=== PATIENT | male | born 1965 | race African-American/Black ===

== ENCOUNTER 2016-06-17 07:17 | Day surgery (SDC) | payer MEDICARE, OTHER ==
[~2016-06-17 07:17] MED LIST: CEFAZOLIN SODIUM 1 GM in DEXTROSE 5%-WATER 50 ML IV PRN
[2016-06-17] MEDS ORDERED: LIDOCAINE 1% INJ-PF (10 MG/ML) 30 ML SDV ONE (07:21)
[2016-06-17] MEDS ORDERED: BACITRACIN INJ 50,000 UNIT VIAL ONE (07:21)
[2016-06-17] MEDS ORDERED: HEPARIN SOD (PORCINE) 1,000 UNIT/ML 10 ML VIAL ONE (07:21)
[2016-06-17] MEDS ORDERED: LIDOCAINE 0.5% INJ-PF (5 MG/ML) 50 ML SDV ONE (07:21)
[2016-06-17] MEDS ORDERED: BUPIVACAINE HCL 0.25 % INJ/PF (2.5 MG/1 ML) 30 ML VIAL ONE (07:21)
[2016-06-17] MEDS ORDERED: FENTANYL CITRATE INJ/PF 250 MCG/5 ML AMPULE ONE (07:56)
[2016-06-17] MEDS ORDERED: MIDAZOLAM 2 MG/2 ML INJ ONE ×2 (07:56→09:50)
[2016-06-17] MEDS ORDERED: DEXMEDETOMIDINE INJ 80 MCG/20 ML VIAL IV ONE (07:57)
[2016-06-17] MEDS ORDERED: PROPOFOL INJ 200 MG/20 ML VIAL IV ONE ×2 (07:57→09:49)
[2016-06-17] MEDS ORDERED: EPHEDRINE SULFATE INJ 50 MG/1 ML AMPULE ONE (07:57)
[2016-06-17] MEDS ORDERED: FENTANYL CITRATE INJ/PF 100 MCG/2 ML AMPUL ONE (09:49)
[2016-06-17] MEDS ORDERED: VANCOMYCIN HCL INJ 500 MG VIAL ONE (11:17)
[2016-06-17] MEDS ORDERED: VANCOMYCIN HCL INJ 1000 MG VIAL ONE (11:18)
[2016-06-17] MEDS ORDERED: OXYCODONE-ACETAMINOPHEN 5-325 MG TABLET PO PRN ×2 (12:53)
[2016-06-17] MEDS ORDERED: MEPERIDINE HCL/PF INJ 25 MG/1 ML DISP.SYRIN IV PRN (12:53)
[2016-06-17] MEDS ORDERED: FENTANYL CITRATE INJ/PF 100 MCG/2 ML AMPUL IV PRN ×3 (12:53)
[2016-06-17] MEDS ORDERED: PROMETHAZINE HCL INJ 25 MG/1 ML VIAL IV PRN ×2 (12:53)
[2016-06-17] MEDS ORDERED: DIPHENHYDRAMINE HCL 50 MG/ML VIAL IV PRN (12:53)
[2016-06-17] MEDS ORDERED: MORPHINE SULFATE 10 MG/ML INJ IV PRN (12:53)
--- NOTE | 2016-06-17 13:44 | PDOC DISCHARGE SUMMARY ---
Discharge Summary (SDC) - Discharge Final Diagnosis: #1 malfunctioning AV fistula right arm, multiple aneurysms, stenosis. #2 end-stage renal disease on hemodialysis. #3 diabetes mellitus type II. #4 hypertension. Date of Surgery: 06/17/16 Discharge Date: 06/17/16 Condition: Fair Treatment or Instructions: #1 activities within moderation encouraged. #2 follow up in my office by appointment in about 1 week. Call for appointment. #3 the wounds covered clean and dry until office visit. #4 hold off on school/work until evaluation in office. #5 may shower in 48 hours, keep operated area as dry as possible. #6 discharge from ambulatory to when ASU criteria met. #7 medications per medication reconciliation sheet. #8 Percocet prescription. Prescriptions: Oxycodone HCl/Acetaminophen [Percocet 5-325 mg Tablet] 1 tab PO ASDIR PRN #10 tab PRN Reason: Discharge Diet: Other (Comments) - Renal Respiratory Treatments at Home: Deep Breathing/Coughing Report the Following to Your Physician Immediately: Unusual Bleeding
--- NOTE | 2016-06-17 13:57 | Operative Report ---
Operative Report DATE OF SURGERY: 06/17/16 PREOPERATIVE DIAGNOSIS: #1 malfunctioning AV fistula right arm, multiple aneurysms, stenosis. #2 end-stage renal disease on hemodialysis. #3 diabetes mellitus type II. #4 hypertension. POSTOPERATIVE DIAGNOSIS: #1 malfunctioning AV fistula right arm, multiple aneurysms, stenosis. #2 end-stage renal disease on hemodialysis. #3 diabetes mellitus type II. #4 hypertension. OPERATION: #1 ultrasound guided right femoral vein catheter insertion. #2 needle entry into right arm AV fistula. #3 angioplasty in right subclavian vein , central. #4 angioplasty in the right arm AV fistula, transposed basilic to brachial. #5 angiogram and interpretation. #6 resection of true aneurysm of right arm arteriovenous fistula. SURGEON: EDDI MORALES GREASE REFINER OPERATOR: JP PRESLEY ANESTHESIA: Moderate Sedation TISSUE REMOVED OR ALTERED: Right arm arteriovenous fistula aneurysm wall. COMPLICATIONS: None ESTIMATED BLOOD LOSS: 20 mL. INTRAOPERATIVE FINDINGS: #1 satisfactory right femoral vein with satisfactory access under ultrasound guidance. Ultrasound guidance of considerable efficacy in this thin patient with a vein more or less beneath the femoral artery. #2 a right arm AV fistula with 2 large aneurysms. Angiogram demonstrates a stenosis at about 10 cm about 90% of the adjacent lumen for distance of about a centimeter. Eradicated with angioplasty. A second stenosis noted in the mid subclavian vein about 70% of the adjacent lumen. Eradicated by angioplasty. 2 aneurysms of the right arm transposed basilic to brachial fistula. The distal is about 5 cm x 3 cm. The more cephalad about 6 cm x 3 cm. Only the distal one was resected. The other may need resection in the future. To preserve dialysis access in this patient with a blanca fistula and extremely difficult veins resection will be staged. Good functioning, good thrill in the fistula at the end of the procedure. The patient small veins made it impossible for anesthesia to get an IV hence the need for central line. PROCEDURE: After obtaining informed consent, the patient was assessed in the operating room and positioned supine. The the right groin and lower area were prepared with chlorhexidine and draped out with sterile linen. After the " universal timeout",the procedure commenced. A steriley sheathed ultrasound probe was used to evaluate the right femoral vein. Local anesthesia was infiltrated adjacent to the probe. Access into the right femoral vein was obtained using a micropuncture needle, followed by micropuncture wire and then a micropuncture catheter. This was followed by introduction of a 0.035 guidewire the tip of which was placed into the level of the inferior vena cava . Further local anesthesia was infiltrated. The dry lumen catheter was now easily placed over the guidewire. The guidewire was now removed. Easy ingress of heparinized solution and egress of blood obtained through all 3 ports. The catheter was now anchored using 3-0 nylon. A Biopatch device was now placed adjacent to the catheter. Dressings were applied and the procedure concluded. After verifying the procedure and having obtained informed consent, the patient's right arm was prepared with Chlorhexidine and draped out with sterile linen. Local anesthesia infiltrated. Percutaneous access into the fistula ,[ antegrade], obtained directly through the distal aneurysm using a 18-gauge Angiocath. A 0.035 [place] wire was inserted, and over this, a 7 Gren[place] short introducer was placed, this was followed by a [8] angioplasty balloon . Angioplasty was Angioplasty was not did in the culprit subclavian lesion inflating the 8 mm balloon up to 14 demarcus and sustaining it for 2 minutes. The guidewire removed, the catheter withdrawn and an angiogram done so that the catheter demonstrated resolution of the subclavian lesion. The 8 mm balloon was now sequentially inflated all along the fistula down to the introducer. A completion angiogram demonstrated the that there was resolution of the area of stenosis at about 10 cm.. Inflating up to 18 atmospheres for a minute at a time.]. Completion angiogram demonstrated [satisfactory result]. A 3-0 PDS suture was now used to close the puncture wound after removal of a 7 Gren[place] introducer.. After verifying the procedure and having obtained informed consent, the patient's right arm was prepared with Chlorhexidine and draped out with sterile linen. After the universal timeout, in which was verified that the patient received IV antibiotic, the procedure commenced. The angiographic equipment was now removed from the room and the field recommenced for the aneurysm resection. The area of the aneurysm for resection was marked. Also marked was the area in the fistula which is accessible for dialysis in the future, local anesthesia was infiltrated into inserted into the skin and subcutaneous tissues around the area to be excised. The incision was now made taking care to leave healthy skin and to remove the diseased skin. Dissection proceeded into the subcutaneous tissues in between the skin and aneurysm wall. A hemostat was used to define this plane which was also nicely defined by the local anesthesia, the dissection proceeded medially and then laterally around the aneurysm. The dissection proximal and distal to the aneurysm was done just sufficient to place occluding vascular clamps. Hemostasis was secured in the operative field using cautery, light vascular clamps were now applied proximally and distally and found to be satisfactory. They were now removed. The patient was given 2500 units of heparin intravenously. After 3 minutes the clamps were reapplied. A Macias scissor was now used to excise the aneurysm wall and overlying skin taking care to leave sufficient fistula for closure, without stenosis. The aneurysm wall and overlying skin were submitted for pathology after photograph had been taken. Fistula was now reconstituted by a continuous side to side suture of 4-0 Prolene. This was tied and a second layer of continuous interlocking suture done of the same material. Control of the fistula was now released and it was evaluated. There was a nice thrill in it and the size was reconstituted to approximately 1 cm in diameter. Hemostasis was checked for and ensured and the wound closed. The wound was now closed using interrupted 3-0 PDS to the subcutaneous tissues. The skin was closed using interrupted and continuous sutures of 4-0 Monocryl. These were reinforced with Steri-Strips over benzoin and a dressing applied. Dressings applied, procedure concluded. The rn first assist provided retraction, thus facilitating the operative view. Controlled bleeding. The rn first assist also followed the suturing, thus facilitating accurate suture placement. Sutured skin and applied dressings. cc: EDDI STEINBERG M.D. ([id number]) >>
[2016-06-17 15:50] VITALS: BP 131/84
--- NOTE | 2016-06-17 16:59 | EKG REPORT ---
SEVERITY:- ABNORMAL ECG - SINUS RHYTHM LVH WITH SECONDARY REPOLARIZATION ABNORMALITY PROLONGED QT INTERVAL : Confirmed by: Lulú Fowler MD 17-Jun-2016 16:58:27
== END 2016-06-17 15:10 | disposition home or self-care (01) ==
LOC: OROUT 07:17
PROVIDERS: ATTEND Surgery
PROC: 05SB3ZZ Reposition Right Basilic Vein, Percutaneous Approach (ICD-10-PCS; 2016-06-17)
PROC: 05WY0JZ Revision of Synthetic Substitute in Upper Vein, Open Approach (ICD-10-PCS; 2016-06-17)
PROC: 05H533Z Insertion of Infusion Device into Right Subclavian Vein, Percutaneous Approach (ICD-10-PCS; principal; 2016-06-17 09:15)
PROC: 06HM33Z Insertion of Infusion Device into Right Femoral Vein, Percutaneous Approach (ICD-10-PCS; 2016-06-17 09:15)
DX: T82.858A Stenosis of other vascular prosthetic devices, implants and grafts, initial encounter (principal); Y83.2 Surgical operation with anastomosis, bypass or graft as the cause of abnormal reaction of the patient, or of later complication, without mention of misadventure at the time of the procedure; I12.0 Hypertensive chronic kidney disease with stage 5 chronic kidney disease or end stage renal disease; N18.6 End stage renal disease; Z99.2 Dependence on renal dialysis; J45.909 Unspecified asthma, uncomplicated; E11.9 Type 2 diabetes mellitus without complications; K21.9 Gastro-esophageal reflux disease without esophagitis; I50.9 Heart failure, unspecified; Z88.0 Allergy status to penicillin; Z88.8 Allergy status to other drugs, medicaments and biological substances; Z87.891 Personal history of nicotine dependence; Z79.4 Long term (current) use of insulin; Z79.899 Other long term (current) drug therapy
CPT/HCPCS: 36819; 36832; 36901; 88305 ×2; 71010; 73060; 93005; 93010; C1725; C1751; C1769; C1752; C1894; Q9967; J2250; J3490 ×3; J0690; J3010; J1644; J3370 ×2; J2704; 01844; J1642

== ENCOUNTER → 2016-08-19 | Day surgery (SDC) | payer MEDICARE, OTHER ==
[2016-08-12 10:59] LABS: HEMATOCRIT 34.9 % (37.9-51.0); HEMOGLOBIN 11.3 g/dL (13.5-17.0); MEAN CORPUSCULAR HEMOGLOBIN 30.4 pg (27.0-33.4); MEAN CORPUSCULAR HGB CONC 32.3 g/dL (32.0-36.0); MEAN CORPUSCULAR VOLUME 94 fl (80-97); RED BLOOD COUNT 3.71 10^6/uL (4.35-5.55); RED CELL DISTRIBUTION WIDTH 17.8 % (11.5-14.0); WHITE BLOOD COUNT 4.8 10^3/uL (4.0-10.5)
[2016-08-12 11:14] LABS: BLOOD UREA NITROGEN 49 mg/dL (7-20); CALCIUM 8.1 mg/dL (8.4-10.2); CARBON DIOXIDE 20 mmol/L (22-30); CHLORIDE 99 mmol/L (98-107); CREATININE RESULT 8.07 mg/dL (0.52-1.25); GLUCOSE 334 mg/dL (75-110); POTASSIUM 4.9 mmol/L (3.6-5.0); SODIUM 139.6 mmol/L (137-145)
[2016-08-12 11:19] LABS: ANION GAP 21 (5-19)
--- NOTE | 2016-08-12 12:58 | EKG REPORT ---
SEVERITY:- ABNORMAL ECG - SINUS RHYTHM LVH WITH SECONDARY REPOLARIZATION ABNORMALITY PROLONGED QT INTERVAL : Confirmed by: Blade Forte 12-Aug-2016 12:58:02
[~2016-08-19] MED LIST changes: +BACITRACIN INJ 50,000 UNIT VIAL ONE; +BUPIVACAINE HCL 0.25 % INJ/PF (2.5 MG/1 ML) 30 ML VIAL ONE; +CEFAZOLIN 1 GM/D5W RTU 1 GM/50 ML RTUPB IV PRN; -CEFAZOLIN SODIUM 1 GM in DEXTROSE 5%-WATER 50 ML IV PRN; +CLINDAMYCIN 600 MG/D5W RTU 600 MG/50 ML RTUPB IV PRN; +DEXMEDETOMIDINE INJ 80 MCG/20 ML VIAL IV ONE; +FENTANYL CITRATE INJ/PF 100 MCG/2 ML AMPUL ONE; +HEPARIN SOD (PORCINE) 1,000 UNIT/ML 10 ML VIAL ONE; +LIDOCAINE 0.5% INJ-PF (5 MG/ML) 50 ML SDV INJ PRN; +LIDOCAINE 0.5% INJ-PF (5 MG/ML) 50 ML SDV ONE; +LIDOCAINE 1% INJ-PF (10 MG/ML) 30 ML SDV ONE; +MIDAZOLAM 2 MG/2 ML INJ ONE; +NORMAL SALINE 1000 ML 1,000 ML IV PRN; +PROPOFOL INJ 200 MG/20 ML VIAL IV ONE; +THROMBIN (BOVINE) 5000 UNIT EPITAXIS KIT ONE
[2016-08-19 06:23] VITALS: BP 204/116
[2016-08-19 07:06] LABS: POTASSIUM 4.9 mmol/L (3.6-5.0)
== END ==
LOC: OROUT 05:38
PROVIDERS: ATTEND Surgery
DX: T82.9XXA Unspecified complication of cardiac and vascular prosthetic device, implant and graft, initial encounter (principal); E11.22 Type 2 diabetes mellitus with diabetic chronic kidney disease; N18.6 End stage renal disease; I50.9 Heart failure, unspecified; Z79.899 Other long term (current) drug therapy; Z88.0 Allergy status to penicillin; Z01.818 Encounter for other preprocedural examination
CPT/HCPCS: 93005; 36415 ×2; 82947; 84132; 85027; 80048; 93010; J3490 ×3; J1644; J1642; J2250; J2704; J3010

== ENCOUNTER 2016-08-26 06:54 | Day surgery (SDC) | payer MEDICARE, OTHER ==
[~2016-08-26 06:54] MED LIST changes: -CEFAZOLIN 1 GM/D5W RTU 1 GM/50 ML RTUPB IV PRN; -DEXMEDETOMIDINE INJ 80 MCG/20 ML VIAL IV ONE; -FENTANYL CITRATE INJ/PF 100 MCG/2 ML AMPUL ONE; -HEPARIN SOD (PORCINE) 1,000 UNIT/ML 10 ML VIAL ONE; -LIDOCAINE 0.5% INJ-PF (5 MG/ML) 50 ML SDV INJ PRN; +LIDOCAINE 0.5% INJ-PF (5 MG/ML) 50 ML SDV SUBCUT PRN; -LIDOCAINE 1% INJ-PF (10 MG/ML) 30 ML SDV ONE; -MIDAZOLAM 2 MG/2 ML INJ ONE; +NORMAL SALINE 1000 ML (RENAL PATIENTS) IV PRN; -NORMAL SALINE 1000 ML 1,000 ML IV PRN; -PROPOFOL INJ 200 MG/20 ML VIAL IV ONE; -THROMBIN (BOVINE) 5000 UNIT EPITAXIS KIT ONE
[2016-08-26] MEDS ORDERED: KETAMINE HCL INJ 500 MG/10 ML VIAL ONE (08:01)
[2016-08-26] MEDS ORDERED: MIDAZOLAM 2 MG/2 ML INJ ONE ×2 (08:02)
[2016-08-26] MEDS ORDERED: FENTANYL CITRATE INJ/PF 100 MCG/2 ML AMPUL ONE (08:02)
[2016-08-26] MEDS ORDERED: PROPOFOL INJ 200 MG/20 ML VIAL IV ONE (08:03)
[2016-08-26] MEDS ORDERED: DEXMEDETOMIDINE INJ 80 MCG/20 ML VIAL IV ONE (08:03)
[2016-08-26] MEDS ORDERED: HEPARIN SODIUM,PORCINE/NS/PF 0 UNIT/0 ML RTUINJ IV ONE (08:33)
[2016-08-26 09:02] LABS: POTASSIUM 4.8 mmol/L (3.6-5.0)
[2016-08-26] MEDS ORDERED: INSULIN REG, HUMAN 100 UNIT/ML 3 ML VIAL (PYX) ONE ×2 (09:14→11:47)
[2016-08-26] MEDS ORDERED: HEPARIN SOD (PORCINE) 1,000 UNIT/ML 10 ML VIAL ONE (09:31)
[2016-08-26] MEDS ORDERED: OXYCODONE-ACETAMINOPHEN 5-325 MG TABLET PO PRN ×2 (10:14)
[2016-08-26] MEDS ORDERED: FENTANYL CITRATE INJ/PF 100 MCG/2 ML AMPUL IV PRN ×3 (10:14)
[2016-08-26] MEDS ORDERED: DIPHENHYDRAMINE HCL 50 MG/ML VIAL IV PRN (10:14)
[2016-08-26] MEDS ORDERED: MORPHINE SULFATE 10 MG/ML INJ IV PRN (10:14)
[2016-08-26] MEDS ORDERED: PROMETHAZINE HCL INJ 25 MG/1 ML VIAL IV PRN ×2 (10:14)
[2016-08-26] MEDS ORDERED: MEPERIDINE HCL/PF INJ 25 MG/1 ML DISP.SYRIN IV PRN (10:14)
--- NOTE | 2016-08-26 10:54 | PDOC DISCHARGE SUMMARY ---
Discharge Summary (SDC) - Discharge Final Diagnosis: #1 aneurysm of right arm basilic, brachial transposition fistula. #2 end-stage renal disease on hemodialysis. #3 diabetes mellitus type II. #4 hypertension. #5 multiple comorbidities. Date of Surgery: 08/26/16 Discharge Date: 08/26/16 Condition: Good Treatment or Instructions: #1 activities within moderation encouraged. #2 follow up in my office by appointment in about 1 week. Call for appointment. #3 the wounds covered clean and dry until office visit. #4 hold off on school/work until evaluation in office. #5 may shower in 48 hours, keep operated area as dry as possible. #6 discharge from ambulatory when ASU criteria met. Aim for a blood sugar of 200 or less. #7 medications per medication reconciliation sheet. #8 Percocet by prescription.. Also may have one Percocet up to every 4 hours when necessary for pain greater than 4 out of 10 while in the ASU Prescriptions: Oxycodone HCl/Acetaminophen [Percocet 5-325 mg Tablet] 1 tab PO ASDIR PRN #10 tab PRN Reason: Discharge Diet: Other (Comments) - Renal, diabetic. Respiratory Treatments at Home: Deep Breathing/Coughing Discharge Activity: Activity As Tolerated Report the Following to Your Physician Immediately: Unusual Bleeding
[2016-08-26] MEDS ORDERED: DEXTROSE 50%-WATER 25 GM/50 ML DISP.SYRIN IV ONE (13:00)
--- NOTE | 2016-08-26 13:08 | Operative Report ---
Operative Report DATE OF SURGERY: 08/26/16 PREOPERATIVE DIAGNOSIS: #1 aneurysm of right arm basilic, brachial transposition fistula. #2 end-stage renal disease on hemodialysis. #3 diabetes mellitus type II. #4 hypertension. #5 multiple comorbidities. POSTOPERATIVE DIAGNOSIS: #1 aneurysm of right arm basilic, brachial transposition fistula. #2 end-stage renal disease on hemodialysis. #3 diabetes mellitus type II. #4 hypertension. #5 multiple comorbidities. OPERATION: #1 insertion of a right femoral central line under ultrasound guidance. #2 fistula angiogram and angioplasty of a lesion of the subclavian to unction on the right. #3 resection of an aneurysm of the right arm post basilic vein fistula. SURGEON: EDDI MORALES J2EE DEVELOPER: none ANESTHESIA: LMAC TISSUE REMOVED OR ALTERED: Aneurysm wall with overlying skin resected and submitted for pathology. COMPLICATIONS: None ESTIMATED BLOOD LOSS: 10 mL. INTRAOPERATIVE FINDINGS: #1 nicely visualized right femoral vein. Access gained under local anesthesia using real-time ultrasound guidance. Easy egress of blood and ingress of heparinized solution through all 3 ports. #2 a stenosis noted at the right subclavian innominate junction estimated to be 70% stenosis. After dilatation approximately 10% residual stenosis. Much better function with the fistula being softer than initially. The 10 or even 12 mm may be needed. #3 second of 2 aneurysms in the fistula resected. This aneurysm about 4 x 4 x 3 cm. Excised conservatively leaving an estimated width of lumen about 1-1.5 cm. Fistula function was satisfactory at the end of the procedure and the available fistula for access was marked. PROCEDURE: PROCEDURE: After obtaining informed consent, the patient was assessed end positioned supine. The the right groin and lower area were prepared with chlorhexidine and draped out with sterile linen. After the " universal timeout",the procedure commenced. A steriley sheathed ultrasound probe was used to evaluate the right femoral vein. Local anesthesia was infiltrated adjacent to the probe. Access into the right femoral vein was obtained using a micropuncture needle, followed by micropuncture wire and then a micropuncture catheter. This was followed by introduction of a 0.035 guidewire the tip of which was placed into the level of the inferior vena cava . Further local anesthesia was infiltrated. The dry lumen catheter was now easily placed over the guidewire. The guidewire was now removed. Easy ingress of heparinized solution and egress of blood obtained through all 3 ports. The catheter was now anchored using 3-0 nylon. A Biopatch device was now placed adjacent to the catheter. Dressings were applied and the procedure concluded. After verifying the procedure and having obtained informed consent, the patient's right arm was prepared with Chlorhexidine and draped out with sterile linen. After the universal timeout, in which was verified that the patient received IV antibiotic, the procedure commenced. The area for needle introduction was selected such that the skin to be excised was included in the Local anesthesia infiltration . Percutaneous access into the fistula ,[ antegrade], obtained about 10 cm from the arteriovenous anastomosis using a micro puncture needle followed by micro puncture wire and then a micro puncture catheter. A 0.035 [place] wire was inserted, and over this, a 7 Ukrainian short introducer was placed. An angiogram was done reflecting the above findings . This was followed by a 8 angioplasty balloon . Angioplasty was Done up to 14 demarcus for 2 minutes. Completion angiogram demonstrated residual stenosis. A 9 mm angioplasty balloon was now placed over the weighted up to 12 demarcus for 2 minutes. It was demonstrated and eliminated. Completion angiogram demonstrated [satisfactory result]. The instrumentation was now withdrawn over a short piece of catheter and a 2-0 PDS suture. The angiographic equipment was now removed from the room and the field recommenced for the aneurysm resection. The area of the aneurysm for resection was marked. Also marked was the area in the fistula which is accessible for dialysis in the future, local anesthesia was infiltrated into inserted into the skin and subcutaneous tissues around the area to be excised. The incision was now made taking care to leave healthy skin and to remove the diseased skin. Dissection proceeded into the subcutaneous tissues in between the skin and aneurysm wall. A hemostat was used to define this plane which was also nicely defined by the local anesthesia, the dissection proceeded medially and then laterally around the aneurysm. The dissection proximal and distal to the aneurysm was done just sufficient to place occluding vascular clamps. Hemostasis was secured in the operative field using cautery, light vascular clamps were now applied proximally and distally and found to be satisfactory. They were now removed. The patient was given 2500 units of heparin intravenously. After 3 minutes the clamps were reapplied. A Macias scissor was now used to excise the aneurysm wall and overlying skin taking care to leave sufficient fistula for closure, without stenosis. The aneurysm wall and overlying skin were submitted for pathology after photograph had been taken. Fistula was now reconstituted by a continuous side to side suture of 3-0 Prolene. This was tied and a second layer of continuous interlocking suture done of the same material. Control of the fistula was now released and it was evaluated. There was a nice thrill in it and the size was reconstituted to approximately 1 cm in diameter. Hemostasis was checked for and ensured and the wound closed. The wound was now closed using interrupted 3-0 PDS to the subcutaneous tissues. The skin was closed using interrupted and continuous sutures of 4-0 Monocryl. These were reinforced with Steri-Strips over benzoin and a dressing applied. Dressings applied, procedure concluded. DICTATING PHYSICIAN: EDDI STEINBERG M.D.
[2016-08-26] MEDS ORDERED: INSULIN REG, HUMAN 100 UNIT/ML 3 ML VIAL (PYX) SUBCUT PRN (14:15)
[2016-08-26] MEDS ORDERED: GLUCAGON,HUMAN RECOMB 1 MG INJ IM PRN (14:15)
[2016-08-26] MEDS ORDERED: DEXTROSE 40% GEL 15 GM TUBE PO PRN ×2 (14:15)
[2016-08-26] MEDS ORDERED: DEXTROSE 50%-WATER 25 GM/50 ML DISP.SYRIN IV PRN ×2 (14:15)
[2016-08-26] MEDS ORDERED: GLYCOPYRROLATE INJ 0.4 MG/2 ML VIAL ONE (14:34)
[2016-08-26] MEDS ORDERED: LIDOCAINE 2% INJ-PF (20 MG/ML) 10 ML AMPUL ONE (14:34)
[2016-08-26] MEDS ORDERED: METOCLOPRAMIDE HCL INJ/PF 10 MG/2 ML SDV ONE (14:34)
[2016-08-26] MEDS ORDERED: ONDANSETRON HCL INJ/PF 4 MG/2 ML SDV ONE (14:34)
--- NOTE | 2016-08-26 15:16 | PDOC PROGRESS REPORT ---
Subjective Progress Note for:: 08/26/16 Subjective:: The patient was about to be discharged with his last glucose check being 154 when he had as a seizure. IVs were started, he was given D50 W and was quickly back to his normal self. A subsequent glucose is 50. Physical Exam Vital Signs: Temp Pulse Resp BP Pulse Ox 97.4 F 77 16 157/100 H 97 08/26/16 11:33 08/26/16 13:45 08/26/16 13:45 08/26/16 13:45 08/26/16 13:45 Intake & Output 08/25/16 08/26/16 08/27/16 06:59 06:59 06:59 Intake Total 600 Output Total 10 Balance 590 Weight 64 kg Additional comments: Well-developed well-nourished -[place] male. Psychiatric the patient is alert and oriented and judgment and memory and insight normal after a recent seizure. Extremity shows normal range of movement with fistula in place and functioning. Respiratory no shortness of breath or wheezing. Results Laboratory Results: 08/26/16 08:30 08/26/16 08:30 Potassium 4.8 Glucose 440 H* Impressions: Fluoroscopy 08/26/16 00:00 IMPRESSION: Intra procedural imaging and fluoro Humerus X-Ray 08/26/16 00:00 IMPRESSION: Intra procedural imaging and fluoro Assessment & Plan - Diagnosis (1) Hypoglycemia associated with diabetes Is this a current diagnosis for this admission?: YesPlan: Every hourly glucose checks. Admission for overnight observation. Consult requested from Dr. Sánchez. (2) End-stage renal disease on hemodialysis Is this a current diagnosis for this admission?: Yes (3) Hypertension Qualifiers: Hypertension type: essential hypertension Qualified Code(s): I10 - Essential (primary) hypertension Is this a current diagnosis for this admission?: Yes (4) Diabetes mellitus type 1 Qualifiers: Diabetes mellitus complication status: with kidney complications Chronic kidney disease stage: on chronic dialysis - Plan Summary Plan Summary: The patient was admitted. Placed on his normal medication. His glucose to be tracked acutely for about 4 hours aim towards some stability hopefully her out 200. [facility] is to discharge him tomorrow for dialysis as an outpatient.
[2016-08-26] MEDS ORDERED: CLONIDINE HCL 0.2 MG TABLET PO PRN (17:59)
--- NOTE | 2016-08-26 18:13 | PDOC PROGRESS REPORT ---
Subjective Progress Note for:: 08/26/16 Subjective:: I was asked by Dr. Burns to see the patient to check on his blood sugars and blood pressures while admitted for observation. Patient underwent AV fistula aneurysm repair this morning by Dr. Burns. Initial blood sugar was around 400+. Patient was then given some insulin but his blood sugar went down to 20 and had some hypoglycemic seizure. Patient was then given D50/ 50 and blood sugar went up appropriately. However his blood sugar still fluctuates until this time so Dr. Burns place the patient on observation overnight. When I entered the room the patient is pretty much in his normal mental state and is eating dinner. Doesn't really have any much complaints. His last blood sugar was 60. His blood pressure is also within normal limits without any blood pressure medications. He doesn't have any complaints. Physical Exam Vital Signs: Temp Pulse Resp BP Pulse Ox 97.4 F 70 20 120/69 96 08/26/16 11:33 08/26/16 15:47 08/26/16 15:47 08/26/16 15:47 08/26/16 15:14 Intake & Output 08/25/16 08/26/16 08/27/16 06:59 06:59 06:59 Intake Total 600 Output Total 10 Balance 590 Weight 65.5 kg Exam: General appearance: PRESENT: no acute distress, cooperative, well-developed, well-nourished Head exam: PRESENT: atraumatic, normocephalic Eye exam: PRESENT: conjunctiva pink, PERRLA. ABSENT: scleral icterus Neck exam: ABSENT: JVD Respiratory exam: PRESENT: Normal breath sounds. ABSENT: crackles, rales, rhonchi, unlabored, wheezes Cardiovascular exam: PRESENT: Regular rate rhythm -+S1, +S2. Right AV fistula on his right upper arm with good bruit. There is a dressing around it post surgery. ABSENT: diastolic murmur, systolic murmur GI/Abdominal exam: PRESENT: normal bowel sounds, soft. ABSENT: guarding, mass, tenderness Extremities exam: ABSENT: No edema Neurological exam: PRESENT: alert, awake, oriented to person, place and time. Skin exam: PRESENT: dry, warm, Results Laboratory Results: 08/26/16 08:30 08/26/16 08:30 Potassium 4.8 Glucose 440 H* Impressions: Fluoroscopy 08/26/16 00:00 IMPRESSION: Intra procedural imaging and fluoro Humerus X-Ray 08/26/16 00:00 IMPRESSION: Intra procedural imaging and fluoro Chest X-Ray 08/26/16 14:14 IMPRESSION: Left retrocardiac airspace disease as described. Cardiomegaly. Assessment & Plan - Diagnosis (1) Hypoglycemia associated with diabetes Is this a current diagnosis for this admission?: YesPlan: I have instructed the nurse to do Accu-Chek monitoring every 1 hour until the patient's blood sugar is 150 or greater for two monitorings and then check Accu- Cheks every 4 hours while the patient is here. Do sliding scale Humulin insulin , to start giving insulin only if blood sugars greater than 200. Hold Levemir for now. (2) End-stage renal disease on hemodialysis Is this a current diagnosis for this admission?: YesPlan: Patient is scheduled for hemodialysis at [facility] tomorrow at 10:40 AM hopefully after discharge in the morning. (3) Hypertension Qualifiers: Hypertension type: essential hypertension Qualified Code(s): I10 - Essential (primary) hypertension Is this a current diagnosis for this admission?: YesPlan: Currently well controlled. However I will write an order order for clonidine 0.2 mg every 12 hours when necessary for systolic blood pressure greater than 160. We can resume all other medications if he needs more blood pressure medications while here in hospital. I cautioned the patient's nurse that the patient's blood pressure is also very labile so we need to be careful at this time. - Time Time with patient: 15-25 minutes
[2016-08-26] MEDS ORDERED: HYDRALAZINE HCL INJ/PF 20 MG/1 ML SDV ONE (23:25)
[2016-08-26] MEDS ORDERED: HYDRALAZINE HCL INJ/PF 20 MG/1 ML SDV IV PRN (23:44)
[2016-08-26] MEDS ORDERED: HYDRALAZINE HCL INJ/PF 20 MG/1 ML SDV IV ONE (23:45)
[2016-08-26] MEDS ORDERED: NITROGLYCERIN 0.4 MG/TAB 25 TAB/BOTTLE SL PRN (23:45)
[2016-08-27 05:25] LABS: HEMATOCRIT 37.8 % (37.9-51.0); HEMOGLOBIN 12.4 g/dL (13.5-17.0); HGB HCT DIFFERENCE -0.6; MEAN CORPUSCULAR HGB CONC 32.8 g/dL (32.0-36.0); MEAN CORPUSCULAR VOLUME 95 fl (80-97); RED CELL DISTRIBUTION WIDTH 17.8 % (11.5-14.0); WHITE BLOOD COUNT 7.4 10^3/uL (4.0-10.5)
[2016-08-27 05:46] LABS: ANION GAP 18 (5-19); BLOOD UREA NITROGEN 38 mg/dL (7-20); CALCIUM 8.3 mg/dL (8.4-10.2); CARBON DIOXIDE 23 mmol/L (22-30); CHLORIDE 95 mmol/L (98-107); GLUCOSE 309 mg/dL (75-110); SODIUM 135.8 mmol/L (137-145)
[2016-08-27 05:56] LABS: POTASSIUM 6.2 mmol/L (3.6-5.0)
--- NOTE | 2016-08-27 08:27 | EKG REPORT ---
SEVERITY:- ABNORMAL ECG - SINUS RHYTHM PROBABLE LEFT ATRIAL ABNORMALITY CONSIDER ANTERIOR INFARCT NONSPECIFIC T ABNORMALITIES, LATERAL LEADS BORDERLINE PROLONGED QT INTERVAL : Confirmed by: Cali Syed MD 27-Aug-2016 08:27:31
[2016-08-27 08:43] VITALS: BP 120/69
--- NOTE | 2016-08-28 16:38 | DISCHARGE SUMMARY E ---
Discharge Summary NAME: LU JENKINS : 1965 AGE: 51Y ADMITTED: 08/26/2016 DISCHARGED: 08/27/2016 ADMITTING DIAGNOSES: 1. Aneurysm of right arm basilic, brachial transposition fistula. 2. End-stage renal disease on hemodialysis. 3. Diabetes mellitus type 2. 4. Hypertension. 5. Multiple comorbidities. DISCHARGE DIAGNOSES: 1. Aneurysm of right arm basilic, brachial transposition fistula. 2. End-stage renal disease on hemodialysis. 3. Diabetes mellitus type 2. 4. Hypertension. 5. Multiple comorbidities. 6. Hypoglycemia. 7. Seizure. HISTORY AND PHYSICAL: Please see admission. HOSPITAL COURSE: The patient was admitted and underwent resection of a fistula aneurysm as well as angioplasty. Post procedure, the patient was recovered and was going to be discharged when he had a seizure. His blood sugar was found to be 20, a consequence of attempted correction of glucose as high as over 400. He was treated successfully with glucose and regained consciousness very quickly. He was kept in overnight for observation to make sure that there were no further wide swings in glucose. On the 08/27/2016, he was alert, comfortable, and in no distress. No seizures, and his blood sugar was about 290. At that point, the patient was discharged. He is to continue his original regime on dialysis, medications, and so forth. Follow up in our office by appointment in about 1 week. DICTATING PHYSICIAN: EDDI STEINBERG M.D. [id number] PHY#: [id number] ID: [id number] JOB#: [id number] ACCT: [id number] cc:EDDI STEINBERG M.D. >
== END 2016-08-27 09:09 | disposition home or self-care (01) ==
LOC: OROUT 06:54 → 3W 15:05 → OROUT 08-27 09:09
PROVIDERS: ATTEND Surgery
PROC: B54BZZA Ultrasonography of Right Lower Extremity Veins, Guidance (ICD-10-PCS; 2016-08-26)
PROC: 05LB0ZZ Occlusion of Right Basilic Vein, Open Approach (ICD-10-PCS; principal; 2016-08-26 08:00)
PROC: 06HM33Z Insertion of Infusion Device into Right Femoral Vein, Percutaneous Approach (ICD-10-PCS; 2016-08-26 08:00)
DX: T82.858A Stenosis of other vascular prosthetic devices, implants and grafts, initial encounter (principal); Y83.2 Surgical operation with anastomosis, bypass or graft as the cause of abnormal reaction of the patient, or of later complication, without mention of misadventure at the time of the procedure; I12.0 Hypertensive chronic kidney disease with stage 5 chronic kidney disease or end stage renal disease; E16.2 Hypoglycemia, unspecified; E08.22 Diabetes mellitus due to underlying condition with diabetic chronic kidney disease; N18.6 End stage renal disease; Z99.2 Dependence on renal dialysis; D50.8 Other iron deficiency anemias; G40.909 Epilepsy, unspecified, not intractable, without status epilepticus; I50.9 Heart failure, unspecified; I51.7 Cardiomegaly; K21.9 Gastro-esophageal reflux disease without esophagitis; F32.9 Major depressive disorder, single episode, unspecified; Z79.899 Other long term (current) drug therapy; Z87.891 Personal history of nicotine dependence; Z79.4 Long term (current) use of insulin; Z88.8 Allergy status to other drugs, medicaments and biological substances; Z88.0 Allergy status to penicillin
CPT/HCPCS: 37607; 36558; 36415; 82962; 82947; 84132; 85027; 80048; 88304 ×2; 71010; 73060; 93005; 93010; C1725; C1751; C1769; C1894; Q9967; J2250; J3490 ×6; A9270 ×4; J3010; J1644 ×2; J0360; J2765; J2405; J2704; 01844; J1642; J1815

== ENCOUNTER 2016-09-01 05:59 | Emergency (ER) | payer MEDICARE, OTHER ==
[2016-09-01] MEDS ORDERED: MORPHINE SULFATE 10 MG/ML INJ IV ONE (09:16)
[2016-09-01] MEDS ORDERED: ONDANSETRON HCL INJ/PF 4 MG/2 ML SDV IV ONE (09:16)
[2016-09-01] MEDS ORDERED: HYDRALAZINE HCL INJ/PF 20 MG/1 ML SDV IV ONE (09:16)
[2016-09-01] MEDS ORDERED: HYDRALAZINE HCL 10 MG TABLET PO ONE (09:20)
[2016-09-01] MEDS ORDERED: HYDROCODONE/ACETAMINOPHEN 5-325 MG TABLET PO ONE (09:20)
[2016-09-01] MEDS ORDERED: ONDANSETRON 4 MG TAB.RAPDIS PO ONE (09:20)
--- NOTE | 2016-09-01 09:23 | ER Document Report ---
ED General - General Chief Complaint: Nausea/Vomiting/Diarrhea Stated Complaint: ABDOMINAL PAIN Mode of Arrival: Ambulatory Information source: Patient Notes: 51-year-old male end-stage renal disease on dialysis who was present dialysis performed today comes in with complaints of vomiting. Patient notes he has had multiple episodes, patient has been eating at home but did not take it. Patient has been told of his other medications he states. Denies any chest pain shortness of breath difficulty breathing, admits to mild generalized abdominal tenderness worse in the left lower quadrant Denies any fevers or chills TRAVEL OUTSIDE OF THE [place] IN LAST 30 DAYS: No - HPI Onset: Yesterday Onset/Duration: Intermittent Quality of pain: No pain Severity: Mild Pain Level: 1 Associated symptoms: Nausea, Vomiting Exacerbated by: Denies Relieved by: Denies Similar symptoms previously: Yes Recently seen / treated by doctor: Yes - Related Data Allergies/Adverse Reactions: Penicillins Allergy (Severe, Verified 05/04/16 05:46) Nausea/Vomitting tuberculin, purified protein deriva [Tuberculin,Purif.Prot.Deriv.] Allergy ( Unknown, Verified 05/04/16 05:46) Converter metoclopramide HCl [From Reglan] Adverse Reaction (Severe, Verified 05/04/16 05: 46) tremors Past Medical History - Social History Smoking Status: Former Smoker Cigarette use (# per day): No Chew tobacco use (# tins/day): No Smoking Education Provided: No Family History: Reviewed & Not Pertinent Patient has suicidal ideation: No Patient has homicidal ideation: No - Past Medical History Cardiac Medical History: Reports: Hx Hypercholesterolemia, Hx Hypertension, Hx Heart Murmur Denies: Hx Coronary Artery Disease, Hx Heart Attack Pulmonary Medical History: Denies: Hx Asthma, Hx Bronchitis, Hx COPD, Hx Pneumonia, Hx Tuberculosis Neurological Medical History: Denies: Hx Cerebrovascular Accident, Hx Seizures Endocrine Medical History: Reports: Hx Diabetes Mellitus Type 1, Hx Diabetes Mellitus Type 2 Renal/ Medical History: Reports: Hx End Stage Renal Disease, Hx Hemodialysis - MWF. Denies: Hx Peritoneal Dialysis - Hemo Malignancy Medical History: GI Medical History: Reports: Hx Gastroesophageal Reflux Disease - Diabetic gastroparesis Musculoskeltal Medical History: Denies Hx Arthritis Psychiatric Medical History: Reports: Hx Depression Traumatic Medical History: Reports: Hx Fractures - left hip Infectious Medical History: Past Surgical History: Reports: Hx Cardiac Surgery, Hx Orthopedic Surgery - left hip/knee, Hx Pancreatic Surgery - Left ORIF, Hx Vascular Surgery - AV fistula right upper arm - Immunizations Hx Diphtheria, Pertussis, Tetanus Vaccination: Yes - 2011 Hx Pneumococcal Vaccination: 06/08/12 Review of Systems - Review of Systems Notes: REVIEW OF SYSTEMS: CONSTITUTIONAL : Denies fever, chills, or sweats. Denies recent illness. EENT: Denies eye, ear, throat, or mouth pain or symptoms. Denies nasal or sinus congestion or discharge. Denies throat, tongue, or mouth swelling or difficulty swallowing. CARDIOVASCULAR: Denies chest pain. Denies palpitations or racing or irregular heart beat. Denies ankle edema. RESPIRATORY: Denies cough, cold, or chest congestion. Denies shortness of breath, difficulty breathing, or wheezing. GASTROINTESTINAL: Admits to dental pain was normal GENITOURINARY: Denies difficulty urinating, painful urination, burning, frequency, blood in urine, or discharge. MUSCULOSKELETAL: Denies back or neck pain or stiffness. Denies joint pain or swelling. SKIN: Denies rash, lesions or sores. HEMATOLOGIC : Denies easy bruising or bleeding. LYMPHATIC: Denies swollen, enlarged glands. NEUROLOGICAL: Denies confusion or altered mental status. Denies passing out or loss of consciousness. Denies dizziness or lightheadedness. Denies headache. Denies weakness or paralysis or loss of use of either side. Denies problems with gait or speech. Denies sensory loss, numbness, or tingling. Denies seizures. PSYCHIATRIC: Denies anxiety or stress. Denies depression, suicidal ideation, or homicidal ideation. ALL OTHER SYSTEMS REVIEWED AND NEGATIVE. Dictation was performed using [employer] voice recognition software PHYSICAL EXAMINATION: GENERAL: Well-appearing, well-nourished and in no acute distress. HEAD: Atraumatic, normocephalic. EYES: Pupils equal round and reactive to light, extraocular movements intact, sclera anicteric, conjunctiva are normal. ENT: Nares patent, oropharynx clear without exudates. Moist mucous membranes. NECK: Normal range of motion, supple without lymphadenopathy LUNGS: Breath sounds clear to auscultation bilaterally and equal. No wheezes rales or rhonchi. HEART: Regular rate and rhythm without murmurs ABDOMEN: Soft, nontender, nondistended abdomen. No guarding, no rebound. No masses appreciated. Musculoskeletal: Normal range of motion, no pitting or edema. No cyanosis. NEUROLOGICAL: Cranial nerves grossly intact. Normal speech, normal gait. Normal sensory, motor exams PSYCH: Normal mood, normal affect. SKIN: Warm, Dry, normal turgor, no rashes or lesions noted. Physical Exam - Vital signs Vitals: Temp Pulse Resp BP Pulse Ox 98.5 F 88 20 195/102 H 95 09/01/16 06:09 09/01/16 06:09 09/01/16 06:09 09/01/16 06:09 09/01/16 06:09 Course - Re-evaluation Re-evalutation: 09/01/16 09:22 This is a 51-year-old male who i have taken care of multiple times in the past presents extremely well today. Patient is in no distress blood pressure is well controlled for him, patient was offered IV medications and States he would rather just have medication be provided. I will give him nausea pain control and hydralazine and recheck. If unable to control the patient's nausea plan is to have patient go to his dialysis today 09/01/16 10:25 Patient notes symptoms have resolved wishes to be discharged so he can have his dialysis performed. Excellent EKG changes and black lab work, patient denies any chest pain shortness of breath states it is only nausea vomiting or diarrhea and that he has no other concerns at this time. I encouraged him follow-up with primary care physician and had lab work performed at dialysis patient is to return immediately if there are any other concerns After performing a Medical Screening Examination, I estimate there is LOW risk for RUPTURED ESOPHAGUS, PNEUMOTHORAX, PULMONARY EMBOLISM, ACUTE CORONARY SYNDROME, OR THORACIC AORTIC DISSECTION, thus I consider the discharge disposition reasonable. The patient and I have discussed the diagnosis and risks , and we agree with discharging home with close follow-up. We also discussed returning to the Emergency Department immediately if new or worsening symptoms occur. We have discussed the symptoms which are most concerning (e.g., bloody sputum, worsening pain or shortness of breath) that necessitate immediate return. - Vital Signs Vital signs: Temp Pulse Resp BP Pulse Ox 98.5 F 88 20 195/102 H 95 09/01/16 06:09 09/01/16 06:09 09/01/16 06:09 09/01/16 06:09 09/01/16 06:09 - EKG Interpretation by Me EKG shows normal: Sinus rhythm, [place], Intervals, ST-T Waves When compared to previous EKG there are: Changes noted - Inverted T waves noted Discharge - Discharge Clinical Impression: Nausea vomiting and diarrhea, CKD (chronic kidney disease) stage V requiring chronic dialysis Condition: Stable Disposition: HOME, SELF-CARE Prescriptions: Ondansetron [Zofran Odt 4 mg Tablet] 1 - 2 tab PO Q4H PRN #15 tab.rapdis PRN Reason: For Nausea/Vomiting Referrals: IJEOMA PAYTON DO [Primary Care Provider] - Follow up tomorrow
[2016-09-01 11:07] VITALS: BP 132/76
--- NOTE | 2016-09-01 16:04 | EKG REPORT ---
SEVERITY:- ABNORMAL ECG - SINUS RHYTHM PROBABLE LEFT ATRIAL ABNORMALITY LEFT VENTRICULAR HYPERTROPHY ABNORMAL T, CONSIDER ISCHEMIA, LATERAL LEADS PROLONGED QT INTERVAL : Confirmed by: Blade Forte 01-Sep-2016 16:03:01
== END 2016-09-01 10:58 | disposition home or self-care (01) ==
LOC: ER 05:59
DX: R11.2 Nausea with vomiting, unspecified (principal); R19.7 Diarrhea, unspecified; E11.22 Type 2 diabetes mellitus with diabetic chronic kidney disease; I12.9 Hypertensive chronic kidney disease with stage 1 through stage 4 chronic kidney disease, or unspecified chronic kidney disease; N18.4 Chronic kidney disease, stage 4 (severe); E78.00 Pure hypercholesterolemia, unspecified; Z99.2 Dependence on renal dialysis; Z88.0 Allergy status to penicillin
CPT/HCPCS: 93005; 99284; 93010; A9270 ×3; J3490; S0119

== ENCOUNTER 2016-09-12 11:09 | Emergency (ER) | payer MEDICARE, OTHER ==
--- NOTE | 2016-09-12 11:30 | ER Document Report ---
ED Neuro Symptoms/Deficit - General Time seen by provider: 11:10 Mode of Arrival: Medic Information source: Patient, Emergency Med Personnel Notes: Patient is a 51 year old male presenting to the emergency department for mild aphasia. Patient was at dialysis on Thursday when he started having some slurred speech and trembling of his extremities; patient states this resolved after he laid down for about 1 hour. Patient was at dialysis today and he felt somewhat weak in his extremities and then states that he started having some difficulty getting his words out. Patient was at the end of his dialysis when these symptoms started. Patient states that he also started having some difficulty breathing. Patient was placed on O2 and given some fluids back at dialysis. Patient was immediately sent to radiology for a CT upon arrival. Patient has a history of diabetes mellitus, hypertension, and has dialysis on Thursday, Thursday, and Thursday. TRAVEL OUTSIDE OF THE [place] IN LAST 30 DAYS: No - HPI Onset: This morning - see HPI note Exact time of onset: 10:00 Duration: Continues in ED Similar symptoms previously: No Recently seen / treated by doctor: No <TOVA CRANE - Last Filed: 09/12/16 12:21> <FRANCHESKA MCLEOD - Last Filed: 09/12/16 14:50> - General Chief Complaint: Slurred Speech Stated Complaint: SHAKING,ALTERED SPEECH - Related Data Allergies/Adverse Reactions: Penicillins Allergy (Severe, Verified 09/12/16 11:25) Nausea/Vomitting tuberculin, purified protein deriva [Tuberculin,Purif.Prot.Deriv.] Allergy ( Unknown, Verified 09/12/16 11:25) Converter metoclopramide HCl [From Reglan] Adverse Reaction (Severe, Verified 09/12/16 11: 25) tremors Past Medical History - General Information source: Patient - Social History Smoking Status: Unknown if Ever Smoked Family History: None Patient has suicidal ideation: No Patient has homicidal ideation: No - Past Medical History Cardiac Medical History: Reports: Hx Hypercholesterolemia, Hx Hypertension, Hx Heart Murmur Pulmonary Medical History: Endocrine Medical History: Reports: Hx Diabetes Mellitus Type 1, Hx Diabetes Mellitus Type 2 Renal/ Medical History: Reports: Hx End Stage Renal Disease, Hx Hemodialysis - MWF, Hx Peritoneal Dialysis Malignancy Medical History: GI Medical History: Reports: Hx Gastroesophageal Reflux Disease - Diabetic gastroparesis Musculoskeltal Medical History: Psychiatric Medical History: Reports: Hx Depression Traumatic Medical History: Reports: Hx Fractures - left hip Infectious Medical History: Past Surgical History: Reports: Hx Cardiac Surgery, Hx Orthopedic Surgery - left hip/knee, Hx Pancreatic Surgery - Left ORIF, Hx Vascular Surgery - AV fistula right upper arm - Immunizations Hx Diphtheria, Pertussis, Tetanus Vaccination: Yes - 2011 Hx Pneumococcal Vaccination: 06/08/12 <ROYCETOVA - Last Filed: 09/12/16 12:21> Review of Systems - Review of Systems Constitutional: No symptoms reported EENT: No symptoms reported Cardiovascular: No symptoms reported Respiratory: No symptoms reported Gastrointestinal: No symptoms reported Genitourinary: No symptoms reported Male Genitourinary: No symptoms reported Musculoskeletal: See HPI Skin: No symptoms reported Hematologic/Lymphatic: No symptoms reported Neurological/Psychological: See HPI, Speech impairment -: Yes All other systems reviewed and negative <TOVA CRANE - Last Filed: 09/12/16 12:21> Physical Exam - Notes Notes: GENERAL: Well-appearing, well-nourished and in no acute distress. HEAD: Atraumatic, normocephalic. EYES: Pupils equal round and reactive to light, extraocular movements intact, sclera anicteric, conjunctiva are normal. ENT: Flattening of the right nasal fold. Moist mucous membranes. Patent airway. NECK: Normal range of motion, supple without lymphadenopathy. LUNGS: Breath sounds clear to auscultation bilaterally and equal. No wheezes, rales, or rhonchi. HEART: Regular rate and rhythm, 3/6 systolic murmur. ABDOMEN: Soft, non-tender. No guarding, no rebound. No masses appreciated. EXTREMITIES: Normal range of motion, no edema, AV fistula to the right upper extremity. NEUROLOGICAL: Mild aphasia. No focal neurological deficits. Moves all extremities spontaneously and on command. Sensation intact. Finger to nose test is normal, heel to torrez test normal, no pronator drift. PSYCH: Normal affect. Normal mood. SKIN: Warm, Dry, normal turgor, no rashes or lesions noted. <TOVA CRANE - Last Filed: 09/12/16 12:21> Course - Re-evaluation Re-evalutation: 09/12/16 11:36 Patient well known to staff here. They report his right nasolabial flattening is normal for him and that his speech is consistent with prior. Considering these are chronic and minimal, he doesn't meet TPA criteria. I was able to verify this with the patient 09/12/16 14:46 Patient and family believe he is is at baseline and they are asking to leave. He did take an aspirin today and will continue an aspirin daily. He will return if he is worsening or further concern. I discussed differential with the patient including TIA as a consideration and he does not wish further evaluation. He has had a good road test. - Laboratory Result Diagrams: 09/12/16 12:19 09/12/16 12:59 - Diagnostic Test Radiology reviewed: Reports reviewed - CT NAD, XRay Cardiomegaly - EKG Interpretation by Me EKG shows normal: Sinus rhythm Rate: Normal Rhythm: NSR Voltage: Consistant with LVH P Waves: LAE <FRANCHESKA MCLEOD - Last Filed: 09/12/16 14:50> ED [employer]/Exc Criteria ED NIH Stroke Scale - NIH Stroke Scale When completed:: Before [employer]te[employer] *: 1. NIH scale should be completed with appropriate accompanying assessment tools. *: 2. The NIH should reflect what the patient is capable of doing and should not be coached by the clinician. 1a. Level of Consciousness: 0=Alert;keenly responsive -: 1=Drowsy -: 2=Obtunded -: 3=Coma/unresponsive or reflex to noxious stimuli. 1a. Responses: 0 1b. Orientation Questions: a. What month is it? -: b. How old are you? -: 0=Answers both questions correctly. -: 1=Answers one question correctly or patient is intubated or has orotracheal trauma. -: 2=Answers neither question correctly. 1b. Responses: 0 1c. Response to commands: a. Open and close eyes? -: b. Chassis Driver and release hand? -: Credit is given despite weakness. Demonstration of task is permitted. Substitute command if hands cannot be used. -: 0=Performs both tasks correctly -: 1=Performs one task correctly -: 2=Performs neither task correctly 1c. Responses: 0 2. Gaze: Establish eye contact and instruct patient to "Follow my finger" -: 0=Normal -: 1=Partial gaze palsy. Gaze is abnormal in one or both eyes, but where forced deviation or total gaze paresis is not present. -: 2=Forced deviation or total gaze paresis. 2. Responses: 0 3. Visual Stover: Sees fingers in all four quadrants. -: 0=No visual loss. -: 1=Partial hemianopsia. -: 2=Complete hemianopsia. -: 3=Bilateral hemianopsia (including Cortical blindness) 3. Responses: 0 4. Facial Movement: Instruct patient to: -: a. Show me your teeth -: b. Raise your eyebrows -: c. Close your eyes -: d. Smile -: 0=Normal symmetrical movement -: 1=Minor paralysis (flattened nasolabial fold, asymmetry on smiling). -: 2=Partial paralysis (total or near total paralysis of lower face). -: 3=Complete paralysis of upper and lower face 4. Responses: 1 5. Motor functions (left arm): Alternate sides and extend each arm with palms down (90 degrees if sitting or 45 degrees for supine). -: 0=No drift;limb holds for full 10 seconds. -: 1=Drift; limb holds but drifts down before full 10 seconds, but does not hit bed. -: 2=Some effort against gravity; limb cannot get to or maintain position. -: 3=No effort against gravity; limb falls. -: 4=No movement. -: UN=Amputation, joint fusion, explain in comments. 5. Responses (left arm): 0 5. Motor Functions (right arm): Alternate sides and extend each arm with palms down (90 degrees if sitting or 45 degrees for supine). -: 0=No drift;limb holds for full 10 seconds. -: 1=Drift; limb holds but drifts down before full 10 seconds, but does not hit bed. -: 2=Some effort against gravity; limb cannot get to or maintain position. -: 3=No effort against gravity; limb falls. -: 4=No movement. -: UN=Amputation, joint fusion, explain in comments. 5. Responses (right arm): 0 6. Motor Functions (left leg): With patient lying supine, alternate sides and extend each leg (30 degrees always while supine). -: 0=No drift, leg holds position for full 5 seconds -: 1=Drift; leg falls before full 5 seconds but does not hit bed. -: 2=Some effort against gravity, leg falls to bed but some effort against gravity. -: 3=No effort against gravity, leg falls to bed immediately. -: 4=No movement. -: UN=Amputation, joint fusion; explain in comments. 6. Responses (left leg): 0 6. Motor Functions (right leg): With patient lying supine, alternate sides and extend each leg (30 degrees always while supine). -: 0=No drift, leg holds position for full 5 seconds -: 1=Drift; leg falls before full 5 seconds but does not hit bed. -: 2=Some effort against gravity, leg falls to bed but some effort against gravity. -: 3=No effort against gravity, leg falls to bed immediately. -: 4=No movement. -: UN=Amputation, joint fusion; explain in comments. 6. Responses (right leg): 0 7. Limb Ataxia: With eyes open instruct patient to: -: a. "Touch your finger to your nose". -: b. "Touch your heel to your torrez" -: 0=Absent -: 1=Present in one limb. -: 2=Present in two limbs. -: UN=Amputation or joint fusion; explain in comments. 7. Responses: 0 8. Sensory: Test sensation using pinprick or noxious stimuli. Test as many body parts as possible. -: 0=Normal;no sensory loss -: 1=Mile to moderate sensory loss (patient feels pin prick but is less sharp on affected side). -: 2=Severe or total sensory loss. 8. Responses: 0 9. Best Language: Instruct patient to: -: a. "Describe what you see in this picture." -: b. "Name the items in this picture." -: c. "Read these sentences." -: 0=No aphasia, normal -: 1=Mild to moderate aphasia. -: 2=Severe aphasia -: 3=Mute, global aphasia, no usable speech or auditory comprehension. 9. Responses: 1 10. Articulation, Dysarthia: Instruct patient to: -: "Read these words" or "Repeat these words" -: 0=Normal -: 1=Mild to moderate; patient may slur some words but can be understood without difficulty. -: 2=Severe; patients speech so slurred as to be unintelligible in the absence of dysphasia. -: UN=Intubated or other physical barrier, explain in comments. 10. Responses: 0 11. Extinction or inattention: 0=No abnormality -: 1= Visual, tactile, auditory, spatial, or personal inattention or extinction to bilateral simulation in one or the sensory modalities. -: 2=Profound ava-inattention or ava-inattention to more than one modality; does not recognize own hand. 11. Responses: 0 Total Score: 2 <TOVA CRANE - Last Filed: 09/12/16 12:21> Discharge <TOVA CRANE - Last Filed: 09/12/16 12:21> - Discharge Scribe Attestation: 09/12/16 14:49 I personally performed the services described in the documentation, reviewed and edited the documentation which was dictated to the scribe in my presence, and it accurately records my words and actions. <FRANCHESKA MCLEOD - Last Filed: 09/12/16 14:50> - Discharge Clinical Impression: Speech abnormality Condition: Good Disposition: HOME, SELF-CARE Additional Instructions: Follow-up with her primary care physician in the next 2-3 days. Please return if worsening or further concern. Make sure you are continuing a daily aspirin as discussed. Scribe Documentation - Scribe Written by Renee:: Tova Crane 09/12/16 12:05 acting as scribe for :: Linda <TOVA CRANE - Last Filed: 09/12/16 12:21>
[2016-09-12 12:33] LABS: ABSOLUTE BASOPHILS # (AUTO) 0.1 10^3/uL (0.0-0.2); ABSOLUTE NEUT (AUTO) 3.7 10^3/uL (1.7-8.2)
[2016-09-12 12:36] LABS: ABSOLUTE EOSINOPHILS # (AUTO) 0.2 10^3/uL (0.0-0.6); ABSOLUTE LYMPHOCYTES (AUTO) 1.1 10^3/uL (0.5-4.7); ABSOLUTE MONOCYTES (AUTO) 0.4 10^3/uL (0.1-1.4); BASOPHILS % (AUTO) 1.1 % (0-2); EOSINOPHILS % (AUTO) 4.4 % (0-6); HEMATOCRIT 35.6 % (37.9-51.0); HEMOGLOBIN 11.9 g/dL (13.5-17.0); HGB HCT DIFFERENCE 0.1; LYMPHOCYTES % (AUTO) 19.6 % (13-45); MEAN CORPUSCULAR HEMOGLOBIN 30.6 pg (27.0-33.4); MEAN CORPUSCULAR HGB CONC 33.4 g/dL (32.0-36.0); MONOCYTES % (AUTO) 7.9 % (3-13); WHITE BLOOD COUNT 5.6 10^3/uL (4.0-10.5)
[2016-09-12 13:14] LABS: PROTHROMBIN TIME 12.4 SEC (11.4-15.4)
[2016-09-12 13:15] LABS: PARTIAL THROMBOPLASTIN TIME 27.9 SEC (23.5-35.8)
[2016-09-12 13:19] LABS: MEAN CORPUSCULAR VOLUME 91 fl (80-97)
[2016-09-12 13:20] LABS: ANISOCYTOSIS 2+; HYPOCHROMASIA 1+; POIKILOCYTOSIS 2+; POLYCHROMASIA SLIGHT
[2016-09-12 13:21] LABS: OVALOCYTES 2+; PLATELET CLUMPS PRESENT; ROULEAUX SLIGHT
[2016-09-12 13:31] LABS: ALANINE AMINOTRANSFERASE 16 U/L (21-72); ALBUMIN 4.9 g/dL (3.5-5.0); ALKALINE PHOSPHATASE 111 U/L (38-126); ANION GAP 16 (5-19); ASPARTATE AMINO TRANSFERASE 26 U/L (17-59); BILIRUBIN,DIRECT 0.5 mg/dL (0.0-0.4); BILIRUBIN,TOTAL 0.7 mg/dL (0.2-1.3); BLOOD UREA NITROGEN 13 mg/dL (7-20); CALCIUM 9.3 mg/dL (8.4-10.2); CARBON DIOXIDE 30 mmol/L (22-30); CHLORIDE 99 mmol/L (98-107); CREATINE KINASE 220 U/L (55-170); CREATININE RESULT 4.28 mg/dL (0.52-1.25); GLUCOSE 77 mg/dL (75-110); POTASSIUM 3.3 mmol/L (3.6-5.0); SODIUM 145.1 mmol/L (137-145); TOTAL PROTEIN 8.8 g/dL (6.3-8.2)
[2016-09-12 14:00] LABS: CREATINE KINASE MB 3.1 ng/mL (<4.55)
[2016-09-12 14:01] LABS: TROPONIN I 0.045 ng/mL
[2016-09-12 15:14] VITALS: BP 120/70
--- NOTE | 2016-09-12 22:29 | EKG REPORT ---
SEVERITY:- ABNORMAL ECG - SINUS RHYTHM LEFT ATRIAL ABNORMALITY LVH WITH SECONDARY REPOLARIZATION ABNORMALITY BORDERLINE PROLONGED QT INTERVAL : Confirmed by: Lulú Fowler MD 12-Sep-2016 22:27:52
== END 2016-09-12 14:59 | disposition home or self-care (01) ==
LOC: ER 11:09
DX: R47.89 Other speech disturbances (principal); E78.00 Pure hypercholesterolemia, unspecified; E11.22 Type 2 diabetes mellitus with diabetic chronic kidney disease; I12.0 Hypertensive chronic kidney disease with stage 5 chronic kidney disease or end stage renal disease; N18.6 End stage renal disease; Z99.2 Dependence on renal dialysis; Z88.0 Allergy status to penicillin
CPT/HCPCS: 36415; 70450; 71010; 80053; 82550; 82553; 82962; 84484; 85025; 85610; 85730; 93005; 93010; 99285